=== PATIENT | female | born 1950 | race Two or more races ===

== ENCOUNTER 2017-04-24 19:23 | Emergency (ER) | payer MEDICAID ==
[~2017-04-24] VITALS: Ht 152.4 cm; Wt 63.5 kg
[2017-04-24 20:24] LABS: CONDITION Y; DEFINITIVE SEE PRINTOUT; Hematocrit 39.4 % (36.0-46.0); Hemoglobin 13.5 g/dL (12.2-16.2); Mean Corpuscular Hemoglobin 35.9 pg (28.0-32.0); Mean Corpuscular Hgb Conc. 34.2 g/dL (32.0-36.0); Mean Corpuscular Volume 104.9 fL (80.0-100.0); Mean Platelet Volume 9.4 fL (7.4-10.4); Platelet Count (auto) 218 10^3/uL (140-450); Red Cell Distribution Width 12.5 % (11.6-16.0); White Blood Cell 9.3 10^3/uL (4.4-10.8)
[2017-04-24 20:39] LABS: Metamyelocytes % 0; Myelocytes % 0; Promyelocytes % 0; Reactive Lymphocytes 0
[2017-04-24 20:42] LABS: Albumin 3.6 g/dL (3.4-5.0); Anion Gap 11 (5-15); Aspartate Aminotransferase 44 U/L (15-37); BUN/Creatinine Ratio 13.3; Blood Urea Nitrogen 11 mg/dL (7-18); Calcium 8.9 mg/dL (8.5-10.1); Carbon Dioxide 22 mmol/L (21-32); Chloride 103 mmol/L (98-107); GFR African American 88 mL/min; GFR Non-African American 73 mL/min; Glucose 217 mg/dL (74-106); Potassium 3.7 mmol/L (3.5-5.1); Sodium 136 mmol/L (136-145)
[2017-04-24 20:50] LABS: Alkaline Phosphatase 126 U/L (45-117); Bilirubin, Total 0.3 mg/dL (0.2-1.0); Total Protein 8.3 g/dL (6.4-8.2)
[2017-04-24 21:00] LABS: B-Type Natriuretic Peptide 18.17 pg/mL (0-100)
[2017-04-24 21:08] LABS: Macrocytosis Slight; Platelet Estimate Adequate
[2017-04-24 21:09] LABS: Temperature: 22.5 C (20.0-25.0)
[2017-04-24 21:29] LABS: INR 0.95 (0.9-1.15); Partial Thromboplastin Time 24.7 sec (22.64-33.71); Prothrombin Time 10.3 sec (9.37-12.3)
[2017-04-25] MEDS ORDERED: HYDROcodone-ACET 5/325MG TAB PO ONE
[2017-04-25] MEDS ORDERED: KETOROLAC TROMETH 30 MG/ML 1ML VIAL IV ONE
[2017-04-25] MEDS ORDERED: ONDANSETRON HCL 4 MG/2 ML VIAL IV ONE
[2017-04-25 00:14] LABS: Urine RBC None Seen /hpf (0 - 4)
[2017-04-25 00:21] LABS: Urine Bilirubin Negative (Negative); Urine Blood Negative /uL (Negative); Urine Color Yellow (Yellow); Urine Nitrite Negative (Negative); Urine Urobilinogen Normal (Negative); Urine pH 6.5 (5.0-8.0)
[2017-04-25 00:22] LABS: Urine Glucose 4+ mg/dL (Normal); Urine Ketone 2+ (Negative)
[2017-04-25 00:52] VITALS: BP 144/76
== END 2017-04-25 02:49 | disposition home or self-care (01) ==
LOC: ER 19:26
DX: G43.909 Migraine, unspecified, not intractable, without status migrainosus (principal); E11.9 Type 2 diabetes mellitus without complications; I10 Essential (primary) hypertension; E07.9 Disorder of thyroid, unspecified; R42 Dizziness and giddiness
CPT/HCPCS: 36415; 70450; 71010; 80053; 81001; 83880; 84484; 85007; 85027; 85610; 85730; 93005; 96374; 96375; 99285; J1885; J2405; J7030